=== PATIENT | male | born 2000 | race Caucasian/White ===

== ENCOUNTER 2020-09-14 16:51 | Emergency (ER) | payer OTHER, SELFPAY ==
--- NOTE | 2020-09-14 16:57 | ED.BACK ---
HPI - Back Pain/Injury General Chief Complaint: Back Pain/Injury Stated Complaint: Back injury Time Seen by Provider: 09/14/20 16:57 Source: patient and RN notes reviewed History of Present Illness HPI Narrative: Patient is a 20-year-old male who presents the urgent care with complaints of mid low back pain. Patient states that he was pulling his pants up from getting off the toilet today while at work, around 2 PM, and felt a twinge in his back. Patient denies any use of [id number] medication for pain. States that it hurts worse when bending at the waist. Denies of any history of back pain. Denies of fall, trauma, known injury. No other acute complaints. No acute distress noted. Patient aware of the plan of care. Some parts of this dictation were generated by voice recognition software and may contain typographical and/or grammatical inaccuracies. Related Data Allergies Allergy/AdvReac Type Severity Reaction Status Date / Time No Known Allergies Allergy Verified 09/14/20 17:12 Review of Systems Review of Systems: Narrative: CONSTITUTIONAL: Denies fever, chills, or sweats. EYES: Denies visual changes, redness, or discharge. ENT: Denies rhinorrhea, congestion, sore throat, or otalgia. CARDIOVASCULAR: Denies chest pain, palpitations, or edema. RESPIRATORY: Denies cough or dyspnea. GASTROINTESTINAL: Denies abdominal pain, nausea, vomiting, or diarrhea. GENITOURINARY: Denies dysuria or hematuria. SKIN: Denies rash or itching. MUSCULOSKELETAL: Reports of mid low back pain NEUROLOGIC: Denies headache, numbness, or weakness. All other systems reviewed are negative, except as documented in HPI. PMFSH Comments At the time of my signature, I reviewed and agree with the nursing past medical, surgical, social, and family history. There is no relevant family history pertinent to the patient complaint. Exam Narrative: Exam Narrative: GENERAL: This is a well-nourished, well-developed patient, in no apparent distress. HEAD: normocephalic, atraumatic. EYES: PERRL. Sclera clear/white. Vision is grossly intact. EARS: External ears normal NOSE: External nose normal with no obvious nasal discharge, nares without redness, no rhinorrhea. THROAT: Mucous membranes moist NECK: Neck supple SKIN: warm, intact with no suspicious lesions or rash, good texture and turgor. NEURO: awake, alert, and oriented to person, place and time. There were no obvious focal neurologic abnormalities. EXTREMITIES: No clubbing, cyanosis, or edema. BACK: Nontender without deformity or crepitance. Negative bilateral SLE Course Vital Signs Vital signs: Vital Signs Temperature 98.7 F 09/14/20 17:02 Pulse Rate 84 09/14/20 17:02 Respiratory Rate 16 09/14/20 17:02 Blood Pressure 116/65 09/14/20 17:02 Pulse Oximetry 99 09/14/20 17:02 Temperature 98.7 F 09/14/20 17:02 Pulse Rate 84 09/14/20 17:02 Respiratory Rate 16 09/14/20 17:02 Blood Pressure 116/65 09/14/20 17:02 Pulse Oximetry 99 09/14/20 17:02 Reviewed MDM - Back Pain/Injury MDM Narrative Medical decision making narrative: Advised the patient to avoid any strenuous activity such as heavy lifting, pushing, pulling for the next 2 to 5 days. Continue normal activity as tolerated. Use ice and heat intermittently for 20-minute intervals, as needed. Do not sleep with a heating pad or an ice pack. Use Tylenol/ibuprofen as needed for pain. Follow-up with your PCP within 2 to 5 days or for worsening symptoms or failure to improve. Differential Diagnosis Differential diagnosis: Likely lumbar radiculopathy, sciatica, strain of lumbar region, pyelonephritis and thoracic back pain Critical Care Time Critical Care Time Critical Care Time: No Discharge Plan Discharge Clinical Impression: Strain of lumbar region Qualifiers: Encounter type: initial encounter Qualified Code(s): S39.012A - Strain of muscle, fascia and tendon of lower back, initial encounter Patient Dispo
[2020-09-14 17:02] VITALS: BP 116/65; PULSE 84; RESP 16; TEMP 37.1; O2SAT 99
== END 2020-09-14 17:15 | disposition home or self-care (01) ==
PROVIDERS: Emergency Provider Nurse Practitioner Family
DX: S39.012A Strain of muscle, fascia and tendon of lower back, initial encounter (principal); X50.9XXA Other and unspecified overexertion or strenuous movements or postures, initial encounter; J45.909 Unspecified asthma, uncomplicated
CPT/HCPCS: 99213; G0463